=== PATIENT | male | born 1950 | race Caucasian/White ===

== ENCOUNTER 2025-09-30 06:20 | Emergency (ER) | payer OTHER, BC ==
[~2025-09-30] VITALS: Ht 182.9 cm; Wt 89.8 kg
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
[2025-09-30] MEDS: 0.9%NACL 1000ML 1,000 ML IV SCH (07:01)
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
[2025-09-30 11:01] VITALS: BP 118/66; PULSE 80; RESP 16; TEMP 98.2; O2SAT 100
== END 2025-09-30 11:12 | disposition home or self-care (01) ==
LOC: EDH 06:20
DX: S46.911A Strain of unspecified muscle, fascia and tendon at shoulder and upper arm level, right arm, initial encounter (principal); M54.2 Cervicalgia; Z88.8 Allergy status to other drugs, medicaments and biological substances; V89.2XXA Person injured in unspecified motor-vehicle accident, traffic, initial encounter; Y93.89 Activity, other specified; Y92.410 Unspecified street and highway as the place of occurrence of the external cause; Y99.8 Other external cause status
CPT/HCPCS: 99283; 73030; J7030